=== PATIENT | female | born 1990 | race Caucasian/White ===

== ENCOUNTER 2016-11-30 02:09 | Emergency (ER) | payer BC ==
[2016-11-30] MEDS ORDERED: Sodium Chloride 0.9% 1,000 ML IV ONE (02:17)
[2016-11-30] MEDS ORDERED: Ketorolac 30 MG/ML SDV IVPUSH ONE (02:17)
[2016-11-30 02:57] LABS: CHLORIDE,CL 109 mmol/L (98-110); SODIUM,NA 141 mmol/L (136-146)
[2016-11-30] MEDS ORDERED: Levofloxacin 500 MG Tab PO ONE (02:57)
[2016-11-30] MEDS ORDERED: Ondansetron 4 MG/2 ML SDV IVPUSH ONE (02:57)
--- NOTE | 2016-11-30 03:01 | EDM.PDOC ---
ED HPI GENERAL MEDICAL PROBLEM - General Chief Complaint: Flank Pain Stated Complaint: RIGHT SIDE FLANK PAIN Time Seen by Provider: 11/30/16 02:57 Source of Information: Reports: Patient - History of Present Illness INITIAL COMMENTS - FREE TEXT/NARRATIVE: HISTORY AND PHYSICAL: History of present illness: Patient has history of pyelonephritis she presents with similar pain she rates 5 out of 10 on the right flank at this time some frequency and dysuria No fever vomiting no chills or sweats she does have some mild nausea over the last 2 days no chest pain shortness breath headache dizziness or palpitation no bowel symptoms Review of systems: As per history of present illness and below otherwise all systems reviewed and negative. Past medical history: As per history of present illness and as reviewed below otherwise noncontributory. Surgical history: As per history of present illness and as reviewed below otherwise noncontributory. Social history: No reported history of drug or alcohol abuse. Family history: As per history of present illness and as reviewed below otherwise noncontributory. Physical exam: HEENT: Atraumatic, normocephalic, pupils reactive, negative for conjunctival pallor or scleral icterus, mucous membranes moist, throat clear, neck supple, nontender, trachea midline. Lungs: Clear to auscultation, breath sounds equal bilaterally, chest nontender. Heart: S1S2, regular, negative for clicks, rubs, or JVD. Abdomen: Soft, nondistended, nontender. Negative for masses or hepatosplenomegaly. Negative for costovertebral tenderness. Pelvis: Stable nontender. Genitourinary: Deferred. Rectal: Deferred. Extremities: Atraumatic, negative for cords or calf pain. Neurovascular unremarkable. Neuro: Awake, alert, oriented. Cranial nerves II through XII unremarkable. Cerebellum unremarkable. Motor and sensory unremarkable throughout. Exam nonfocal. Diagnostics: []CBC, CMP, UA, hCG Blood cultures 2 Urine culture Therapeutics: []1 L normal saline bolus Levaquin 500 mg by mouth Zofran 8 mg IV Toradol 30 mg IV Levaquin 500 by mouth daily #10 no refill [place] 5 per 325 one by mouth every 6 when necessary #10 no refill Impression: []Right pyelonephritis Definitive disposition and diagnosis as appropriate pending reevaluation and review of above. right flank area Pain Score (Numeric/FACES): 8 - Related Data Allergies Allergy/AdvReac Type Severity Reaction Status Date / Time No Known Allergies Allergy Verified 11/30/16 02:19 Home Meds: Home Meds . [No Known Home Meds] 10/15/14 [History] Past Medical History HEENT History: Reports: None Cardiovascular History: Reports: None Respiratory History: Reports: None Gastrointestinal History: Reports: None Genitourinary History: Reports: UTI, Recurrent Other Genitourinary History: kidney infection [employer] History: Reports: Musculoskeletal History: Reports: None Neurological History: Reports: None Psychiatric History: Reports: None Endocrine/Metabolic History: Reports: None Hematologic History: Reports: None Immunologic History: Reports: None Oncologic (Cancer) History: Reports: None Dermatologic History: Reports: None - Infectious Disease History Infectious Disease History: Reports: None - Past Surgical History Head Surgeries/Procedures: Reports: None Social & Family History - Family History Family Medical History: Noncontributory - Tobacco Use Smoking Status *Q: Current Every Day Smoker Years of Tobacco use: 10 Packs/Tins Daily: 0.5 Second Hand Smoke Exposure: No - Caffeine Use Caffeine Use: Reports: Soda - Alcohol Use Days Per Week of Alcohol Use: 1 Number of Drinks Per Day: 4 Total Drinks Per Week: 4 - Recreational Drug Use Recreational Drug Use: No ED ROS GENERAL - Review of Systems Review Of Systems: ROS reveals no pertinent complaints other than HPI. ED EXAM, GENERAL - Physical Exam Exam: See Below Course - Vital Signs Last Recorded V/S: Last Vital Signs Temp 36.1 C 11/30/16 02:19 Pulse 68 11/30/16 02:19 Resp 16 11/30/16 02:19 BP 137/88 11/30/16 02:19 Pulse Ox 98 11/30/16 02:19 - Orders/Labs/Meds Orders: Active Orders 24 hr Category Date Time Status COMPREHENSIVE METABOLIC PN,CMP [CHEM] Stat Lab 11/30/16 02:25 Received CULTURE BLOOD [BC] Stat Lab 11/30/16 02:57 Ordered CULTURE BLOOD [BC] Stat Lab 11/30/16 02:57 Ordered CULTURE URINE [RM] Stat Lab 11/30/16 02:19 Received Levofloxacin [Levaquin] Med 11/30/16 02:57 Once 500 mg PO ONETIME ONE Ondansetron [Zofran] Med 11/30/16 02:57 Once 8 mg IVPUSH ONETIME ONE Sodium Chloride 0.9% [Normal Saline] 1,000 ml Med 11/30/16 02:17 Active IV STAT Blood Culture x2 Reflex Set [OM.PC] Stat Oth 11/30/16 02:57 Ordered Medication Orders Sodium Chloride (Normal Saline) 1,000 mls @ 999 mls/hr IV STAT ONE Stop: 11/30/16 03:17 Last Admin: 11/30/16 02:27 Dose: 999 mls/hr Labs: Laboratory Tests 11/30/16 11/30/16 11/30/16 Range/Units 02:19 02:19 02:25 WBC 12.67 H (4.0-11.0) K/uL RBC 4.53 (4.30-5.90) M/uL Hgb 13.9 (12.0-16.0) g/dL Hct 42.8 (36.0-46.0) % MCV 94.5 (80.0-98.0) fL MCH 30.7 (27.0-32.0) pg MCHC 32.5 (31.0-37.0) g/dL RDW Std Deviation 44.0 (28.0-62.0) fl RDW Coeff of [place] 13 (11.0-15.0) % Plt Count 417 H (150-400) K/uL MPV 10.30 (7.40-12.00) fL Neut % (Auto) 67.8 (48.0-80.0) % Lymph % (Auto) 21.7 (16.0-40.0) % [place] % (Auto) 9.7 (0.0-15.0) % Eos % (Auto) 0.5 (0.0-7.0) % Baso % (Auto) 0.3 (0.0-1.5) % Neut # (Auto) 8.6 H (1.4-5.7) K/uL Lymph # (Auto) 2.8 H (0.6-2.4) K/uL [place] # (Auto) 1.2 H (0.0-0.8) K/uL Eos # (Auto) 0.1 (0.0-0.7) K/uL Baso # (Auto) 0.0 (0.0-0.1) K/uL Nucleated RBC % 0.0 /100WBC Nucleated RBCs # 0 K/uL Urine Color YELLOW Urine Appearance SLT CLOUDY Urine pH 6.0 (5.0-8.0) Ur Specific [place] 1.025 (1.001-1.035) Urine Protein NEGATIVE (NEGATIVE) mg/dL Urine Glucose (UA) NEGATIVE (NEGATIVE) mg/dL Urine Ketones NEGATIVE (NEGATIVE) mg/dL Urine Occult Blood NEGATIVE (NEGATIVE) Urine Nitrite NEGATIVE (NEGATIVE) Urine Bilirubin NEGATIVE (NEGATIVE) Urine Urobilinogen 0.2 (<2.0) EU/dL Ur Leukocyte Esterase SMALL (NEGATIVE) Urine RBC 0-2 (0-2/HPF) Urine WBC 10-15 (0-5/HPF) Ur Epithelial Cells MANY (NONE-FEW) Urine Bacteria 1+ H (NEGATIVE) Urine Mucus MODERATE (NONE-MOD) Urine HCG, Qual NEGATIVE (NEGATIVE) Meds: Medications Generic Name Dose Route Start Last Admin Trade Name Freq PRN Reason Stop Dose Admin Sodium Chloride 1,000 mls @ 999 mls/hr 11/30/16 02:17 11/30/16 02:27 Normal Saline IV 11/30/16 03:17 999 mls/hr STAT ONE Administration Discontinued Medications Generic Name Dose Route Start Last Admin Trade Name Freq PRN Reason Stop Dose Admin Ketorolac Tromethamine 30 mg 11/30/16 02:17 11/30/16 02:27 Toradol IVPUSH 11/30/16 02:18 30 mg ONETIME ONE Administration Departure - Departure Time of Disposition: 02:59 Disposition: Home, Self-Care 01 Condition: Good Clinical Impression: Pyelonephritis - Discharge Information Forms: ED Department Discharge Additional Instructions: Medication as prescribed Return if symptoms persist or worsen Follow-up with primary care in 2 weeks Return if fever nausea vomiting chills sweats or intractable pain should develop The following information is given to patients seen in the emergency department who are being discharged to home. This information is to outline your options for follow-up care. We provide all patients seen in our emergency department with a follow-up referral. The need for follow-up, as well as the timing and circumstances, are variable depending upon the specifics of your emergency department visit. If you don't have a primary care physician on staff, we will provide you with a referral. We always advise you to contact your personal physician following an emergency department visit to inform them of the circumstance of the visit and for follow-up with them and/or the need for any referrals to a consulting specialist. The emergency department will also refer you to a specialist when appropriate. This referral assures that you have the opportunity for follow-up care with a specialist. All of these measure are taken in an effort to provide you with optimal care, which includes your follow-up. Under all circumstances we always encourage you to contact your private physician who remains a resource for coordinating your care. When calling for follow-up care, please make the office aware that this follow-up is from your recent emergency room visit. If for any reason you are refused follow-up, please contact the [facility] emergency department at and asked to speak to the emergency department charge nurse. - My Orders Last 24 Hours: My Active Orders 11/30/16 02:17 Sodium Chloride 0.9% [Normal Saline] 1,000 ml IV STAT 11/30/16 02:19 CULTURE URINE [RM] Stat 11/30/16 02:25 COMPREHENSIVE METABOLIC PN,CMP [CHEM] Stat 11/30/16 02:57 CULTURE BLOOD [BC] Stat CULTURE BLOOD [BC] Stat Levofloxacin [Levaquin] 500 mg PO ONETIME ONE Ondansetron [Zofran] 8 mg IVPUSH ONETIME ONE Blood Culture x2 Reflex Set [OM.PC] Stat - Assessment/Plan Last 24 Hours: My Active Orders 11/30/16 02:17 Sodium Chloride 0.9% [Normal Saline] 1,000 ml IV STAT 11/30/16 02:19 CULTURE URINE [RM] Stat 11/30/16 02:25 COMPREHENSIVE METABOLIC PN,CMP [CHEM] Stat 11/30/16 02:57 CULTURE BLOOD [BC] Stat CULTURE BLOOD [BC] Stat Levofloxacin [Levaquin] 500 mg PO ONETIME ONE Ondansetron [Zofran] 8 mg IVPUSH ONETIME ONE Blood Culture x2 Reflex Set [OM.PC] Stat
[2016-11-30] MEDS ORDERED: Morphine 10 MG/ML Syringe IV ONE (03:16)
[2016-11-30 03:42] VITALS: BP 129/82
== END 2016-11-30 04:06 | disposition home or self-care (01) ==
LOC: MW.ED 02:09
DX: N12 Tubulo-interstitial nephritis, not specified as acute or chronic (principal); F17.210 Nicotine dependence, cigarettes, uncomplicated
CPT/HCPCS: 36415; 80053; 81001; 81025; 85025; 87040; 87086; 96361; 96374; 96375; 99284; A9270; J1885; J2270; J2405; J7040; 87088; 87186

== ENCOUNTER 2017-02-02 01:06 | Emergency (ER) | payer BC, OTHER ==
--- NOTE | 2017-02-02 01:34 | EDM.PDOC ---
ED HPI GENERAL MEDICAL PROBLEM - General Chief Complaint: Upper Extremity Injury/Pain Stated Complaint: RIGHT THUMB POSSIBLY BROKEN Time Seen by Provider: 02/02/17 01:32 - History of Present Illness INITIAL COMMENTS - FREE TEXT/NARRATIVE: HISTORY AND PHYSICAL: History of present illness: Patient 26-year-old white female presents with subacute injury to right hand uniform blunt force trauma she sustained an abrasion contusion is here for evaluation. Tetanus is up-to-date she denies other trauma or concern Review of systems: As per history of present illness and below otherwise all systems reviewed and negative. Past medical history: As per history of present illness and as reviewed below otherwise noncontributory. Surgical history: As per history of present illness and as reviewed below otherwise noncontributory. Social history: No reported history of drug or alcohol abuse. Family history: As per history of present illness and as reviewed below otherwise noncontributory. Physical exam: HEENT: Atraumatic, normocephalic, pupils reactive, negative for conjunctival pallor or scleral icterus, mucous membranes moist, throat clear, neck supple, nontender, trachea midline. Lungs: Clear to auscultation, breath sounds equal bilaterally, chest nontender. Heart: S1S2, regular, negative for clicks, rubs, or JVD. Abdomen: Soft, nondistended, nontender. Negative for masses or hepatosplenomegaly. Negative for costovertebral tenderness. Pelvis: Stable nontender. Genitourinary: Deferred. Rectal: Deferred. Extremities: Extremities remarkable for tenderness palpation she has a wound to the third digit of her right hand its relatively superficial there is no gross deformity no crepitation CMS neurovascular exam are unremarkable Neuro: Awake, alert, oriented. Cranial nerves II through XII unremarkable. Cerebellum unremarkable. Motor and sensory unremarkable throughout. Exam nonfocal. Diagnostics: X-ray right hand Therapeutics: Wound was cleansed irrigated and dressed with bacitracin Impression: #1 acute injury right hand (abrasion/contusion) Definitive disposition and diagnosis as appropriate pending reevaluation and review of above. right thumb Pain Score (Numeric/FACES): 9 - Related Data Allergies Allergy/AdvReac Type Severity Reaction Status Date / Time No Known Allergies Allergy Verified 02/02/17 01:19 Home Meds: Home Meds . [No Known Home Meds] 10/15/14 [History] Past Medical History HEENT History: Reports: None Cardiovascular History: Reports: None Respiratory History: Reports: None Gastrointestinal History: Reports: None Genitourinary History: Reports: UTI, Recurrent Other Genitourinary History: kidney infection [employer]ANT History: Reports: Musculoskeletal History: Reports: None Neurological History: Reports: None Psychiatric History: Reports: None Endocrine/Metabolic History: Reports: None Hematologic History: Reports: None Immunologic History: Reports: None Oncologic (Cancer) History: Reports: None Dermatologic History: Reports: None - Infectious Disease History Infectious Disease History: Reports: Chicken Pox - Past Surgical History Head Surgeries/Procedures: Reports: None Social & Family History - Family History Family Medical History: Noncontributory - Tobacco Use Smoking Status *Q: Current Every Day Smoker Years of Tobacco use: 10 Packs/Tins Daily: 0.5 Second Hand Smoke Exposure: No - Caffeine Use Caffeine Use: Reports: Soda - Alcohol Use Days Per Week of Alcohol Use: 1 Number of Drinks Per Day: 4 Total Drinks Per Week: 4 - Recreational Drug Use Recreational Drug Use: No Review of Systems - Review of Systems Review Of Systems: ROS reveals no pertinent complaints other than HPI. ED EXAM, GENERAL - Physical Exam Exam: See Below (See dictation) Course - Vital Signs Last Recorded V/S: Last Vital Signs Temp 36.5 C 02/02/17 01:19 Pulse 76 02/02/17 01:19 Resp 16 02/02/17 01:19 BP 129/82 02/02/17 01:19 Pulse Ox 99 02/02/17 01:19 - Orders/Labs/Meds Orders: Active Orders 24 hr Category Date Time Status Hand Comp Min 3V Rt [CR] Stat Exams 02/02/17 01:19 Ordered Departure - Departure Time of Disposition: 01:33 Disposition: Home, Self-Care 01 Condition: Good Clinical Impression: Hand injury - Discharge Information Instructions: Contusion, Laceration Care, Adult, [id number] Referrals: Berenice Villatoro PA [Primary Care Provider] - Forms: ED Department Discharge Additional Instructions: The following information is given to patients seen in the emergency department who are being discharged to home. This information is to outline your options for follow-up care. We provide all patients seen in our emergency department with a follow-up referral. The need for follow-up, as well as the timing and circumstances, are variable depending upon the specifics of your emergency department visit. If you don't have a primary care physician on staff, we will provide you with a referral. We always advise you to contact your personal physician following an emergency department visit to inform them of the circumstance of the visit and for follow-up with them and/or the need for any referrals to a consulting specialist. The emergency department will also refer you to a specialist when appropriate. This referral assures that you have the opportunity for followup care with a specialist. All of these measure are taken in an effort to provide you with optimal care, which includes your followup. Under all circumstances we always encourage you to contact your private physician who remains a resource for coordinating your care. When calling for followup care, please make the office aware that this follow-up is from your recent emergency room visit. If for any reason you are refused follow-up, please contact the [facility] emergency department at and asked to speak to the emergency department charge nurse. Follow-up primary medical doctor on today's return as needed as discussed] - My Orders Last 24 Hours: My Active Orders 02/02/17 01:19 Hand Comp Min 3V Rt [CR] Stat - Assessment/Plan Last 24 Hours: My Active Orders 02/02/17 01:19 Hand Comp Min 3V Rt [CR] Stat
[2017-02-02 01:46] VITALS: BP 126/80
--- NOTE | 2017-02-02 11:36 | CR ---
EXAM DATE: 02/02/17 PATIENT'S AGE: 26 Patient: ASAD CHANG Facility: [place], [place] Site . Site : 1990 Study: XRay Extremity Right [id number] 1:36:35 AM Ordering Physician: Doctor Rashid Final Report: INDICATION: hand injury TECHNIQUE: Three views of the right hand COMPARISON: None FINDINGS: Bones: No fractures or bone lesions. Joint spaces: Unremarkable. Soft tissues: Unremarkable. IMPRESSION: No acute bony abnormality. Dictated by Reji Mazariegos MD @ 02/02/2017 1:39:36 AM Dictated by: Reji Mazariegos MD @ 02/02/2017 01:39:58 (Electronic Signature) Report Signed by Proxy. PRABHA
== END 2017-02-02 01:47 | disposition home or self-care (01) ==
LOC: MW.ED 01:06
DX: S60.221A Contusion of right hand, initial encounter (principal); S60.511A Abrasion of right hand, initial encounter; X58.XXXA Exposure to other specified factors, initial encounter; F17.210 Nicotine dependence, cigarettes, uncomplicated; Z87.440 Personal history of urinary (tract) infections
CPT/HCPCS: 73130-26-RT; 73130-RT; 99283